=== PATIENT | male | born 1985 | race Caucasian/White ===

== ENCOUNTER 2017-03-23 19:06 | Emergency (ER) | payer BC, OTHER ==
[~2017-03-23] VITALS: Ht 182.9 cm; Wt 136.1 kg
[2017-03-23] MEDS ORDERED: SODIUM BICARB 8.4% 50 MEQ/50 ML (ABBOTT) SYR INJ ONE (19:08)
[2017-03-23] MEDS ORDERED: NS 1000 ML IV BAG IV ONE (19:08)
[2017-03-23] MEDS ORDERED: EPINEPHrine INJECTION 1 MG/ML AMP IJ ONE (19:08)
--- NOTE | 2017-03-23 19:37 | ED CPR ---
HPI-CPR General Chief Complaint: Code Blue Stated Complaint: CODE Source of Information: Patient, EMS, Family, RN/MD (Dr. Bower, primary care) Exam Limitations: Physical Impairments (orotracheally intubated) History of Present Illness Date Seen by Provider: Mar 23, 2017 Time Seen by Provider: 19:07 Initial Comments Patient resists ER by EMS with a chief complaint that per the spouse who is present on the scene that she went in to give the kid's a bath and he was doing fine on the couch with one of the kids on his lap when she left. For the past 24 hours she started experiencing some flulike symptoms chills fever cough productive of frothy crud so she had him on home rest with Tylenol and fluids by mouth. Everyone else in his family has been diagnosed with the flu. He is known to Dr. Bower who gives a report that he has no known medical history other than likely he has sleep apnea possible OHS. states when she was in the bathroom she heard some weird sounds went in to check on him and he was having a seizure with his eyes rolled back in his body stiffened his arms posturing inwards and internally rotated. 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 He does not have any seizure history or other significant medical or surgical history. No recent trauma. She found him not to be breathing and pulseless so she began CPR but he was still in his recliner and she was unable to get him to the floor because of his size so she does not feel that the CPR is very good. She then called 911 jairo the EMS drove past her house a couple times so she had to discontinue her resuscitative efforts and go out and flag down the ambulance. At no times of the patient have a risk return of spontaneous circulation per the or EMS. The states the patient didn 't give about 2 or 3 deep agonal gasps when she was trying to do CPR initially. EMS reports when they put paddles on him he initially had asystole and one time and pulse check by felt he may have had some A. fib so they shocked him at 200 J but nothing came of it. They gave 4 rounds of epinephrine and one amp of bicarbonate as well as a amp of D50 although the blood sugar was 78 when they checked it. Family initiated CPR was about 1820. They arrived at the ER at 1907. Review of Systems Constitutional: see HPI (patient is orotracheally intubated and the rest of the review systems given per is in the history of present illness) Past Pclaait-Ughcoy-Dqqbfn Hx Patient Social History Alcohol Use: Denies Use Recreational Drug Use: No Smoking Status: Never a Smoker Physical Exam Vital Signs Capillary Refill : General Appearance: Obese, Severe Distress HEENT: Other (pupils bilateral are 4-5 mm and fixed and nonreactive to light with conjunctival injection. Orotracheally intubated in the field by EMS) Neck: Other Respiratory: Lungs Clear, Respiratory Distress (ventilated by Ambu bag), Other (no breath sounds heard over the epigastric) Cardiovascular: No Edema, No JVD, Other (chest compressions and high-quality CPR is being given on arrival) Gastrointestinal: Soft, No Distended, No Mass Skin: Warm/Dry, Mottled, Pet[place]ia Critical Care Note Critical Care Start Time: 19:07 Stop Time: 19:18 Total Time (minutes) 11 mins Date of : Mar 23, 2017 Time of : 19:18 Progress When patient arrived we receive report from EMS as well as we initiated antibiotic then a milligram of epinephrine through his IV. Another IV was established and is right-hand to go with the IO. He received about 1-1/2 L so we started a second bag of fluids. The patient's lung sounds were clear but there is no pulse on a pulse check. He was in asystole. Continued high-quality CPR and ventilatory support for a [id number]-[id number] however when placed on end- tidal CO2 his end-tidal CO2 only got as high as 7 cm water pressure after several rounds of CPR the pulse check was continually showing pulseless asystole. Would speak with family and discussed the situation in detail and 3 more milligrams of epinephrine and 3 more rounds of CPR were given. Patient still asystole with a end-tidal CO2 of 2 with mottled blue skin. It was decided at this point that he had gone for almost an hour without spontaneous circulation and the first 10-20 minutes were probably insufficient CPR so he went back to discuss with family that the chances of a meaningful neurologic recovery were exceedingly thin and that we were not likely to be able to resuscitate her loved one. There is nothing else in the history to suggest an ingestion, suicidal intent, homicidal intent, undiagnosed cardiopulmonary disease. It is thought most likely that the patient may have had influenza or similar lung disease and possibly developed a pulmonary embolism or some other catastrophic event that led to his demise. The then consented and we discontinued our resuscitative efforts at 1918. Departure Impression Impression: Primary Impression: Cardiopulmonary arrest Disposition: 20 Condition: Copy Copies To 1: FLORENCIO BOWER MD, TITUS J Mar 23, 2017 19:37
[2017-03-23 21:55] VITALS: BP 0/0
== END 2017-03-23 21:55 | disposition expired ==
LOC: ER 19:07
DX: I46.9 Cardiac arrest, cause unspecified (principal)
CPT/HCPCS: 93041